=== PATIENT | male | born 1950 | race Two or more races ===

== ENCOUNTER 2025-06-05 16:15 | Emergency (ER) | payer MEDICARE, OTHER ==
[~2025-06-05] VITALS: Ht 177.8 cm; Wt 94.8 kg
[2025-06-05 16:30] VITALS: TEMP 98.1
[2025-06-05 16:55] LABS: PLATELET COUNT (AUTO) 349 K/uL (150-450); RED BLOOD CELL COUNT(AUTO) 4.43 MIL/uL (4.5-6.0); RED CELL DISTRIBUTION WIDTH 14.6 % (11.5-15.0); WHITE BLOOD COUNT (AUTO) 4.2 K/uL (4.3-11.0)
[2025-06-05 17:05] LABS: CALCIUM, SERUM 8.9 mg/dL (8.5-10.1); CREATININE 1.0 mg/dL (0.6-1.3); SODIUM SERUM 142 mmol/L (136-145); UREA NITROGEN, BLOOD 25 mg/dL (7-18)
[2025-06-05] MEDS ORDERED: CLON1TAB PO (17:05)
[2025-06-05] MEDS ORDERED: ACET325T53 PO (17:05)
[2025-06-05] MEDS ORDERED: TAMS-12 PO (17:05)
[2025-06-05] MEDS ORDERED: OLAN5TAB3 PO (17:05)
[2025-06-05 17:19] LABS: ASPARTATE AMINOTRANSFERASE 29 U/L (15-37); NT-PRO BNP 73 pg/mL (0-125); TOTAL PROTEIN, SERUM 7.7 g/dL (6.4-8.2)
[2025-06-05 17:55] VITALS: BP 130/72; O2SAT 100
== END 2025-06-05 17:56 | disposition home or self-care (01) ==
LOC: ER 16:29
DX: R79.89 Other specified abnormal findings of blood chemistry (principal); F03.94 Unspecified dementia, unspecified severity, with anxiety; F41.9 Anxiety disorder, unspecified; R06.2 Wheezing; R00.2 Palpitations; Z86.19 Personal history of other infectious and parasitic diseases
CPT/HCPCS: 36415; 71045-TC; 80048-TC; 80076-TC; 83880; 84484-TC; 85025-TC